=== PATIENT | male | born 2000 | race Native Hawaiian/Other Pacific Islander ===

== ENCOUNTER 2021-08-26 14:25 | Emergency (ER) | payer OTHER ==
[~2021-08-26] VITALS: Ht 167.6 cm; Wt 79.5 kg
[2021-08-26 14:40] VITALS: BP 140/62; PULSE 78; TEMP 98.5
[2021-08-26 16:39] LABS: STREP SCREEN NEGATIVE
== END 2021-08-26 17:01 | disposition home or self-care (01) ==
LOC: COL.ER 14:25
PROVIDERS: Nurse Practitioner
DX: J06.9 Acute upper respiratory infection, unspecified (principal); Z20.822 Contact with and (suspected) exposure to COVID-19